=== PATIENT | male | born 1950 | race Caucasian/White ===

== ENCOUNTER 2017-05-05 16:18 | Inpatient (IN) | payer MEDICAID ==
[~2017-05-05] VITALS: Ht 175.3 cm; Wt 83.4 kg
[2017-05-05 17:44] LABS: BASOPHILS # (AUTO) 0.03 x10^3/uL (0-0.1); BASOPHILS % (AUTO) 0 % (0-1); EOSINOPHILS # (AUTO) 0.09 x10^3/uL (0-0.4); EOSINOPHILS % (AUTO) 1 % (1-7); LYMPHOCYTES # (AUTO) 2.23 x10^3/uL (1-3.4); LYMPHOCYTES % (AUTO) 23 % (22-44); MD NO; MEAN CORPUSCULAR HEMOGLOBIN 27.6 pg (27.5-34.5); MEAN CORPUSCULAR HGB CONC 32.2 g/dL (33.2-36.2); MEAN CORPUSCULAR VOLUME 85.6 fL (81-97); MEAN PLATELET VOLUME 7.7 fL (7.4-10.4); MONOCYTES # (AUTO) 1.23 x10^3/uL (0.2-0.8); MONOCYTES % (AUTO) 13 % (2-9); NEUTROPHILS % (AUTO) 63 % (42-75); PLATELET COUNT 265 x10^3/uL (130-400); RED BLOOD COUNT 5.55 x10^6/uL (4.38-5.82); RED CELL DISTRIBUTION WIDTH 13.9 % (9.4-14.8)
[2017-05-05 17:56] LABS: ALBUMIN 2.8 g/dL (3.4-5.0); ANION GAP 9 mmol/L (5-15); CALCIUM 8.6 mg/dL (8.5-10.1); CHLORIDE 109 mmol/L (98-107); CREATININE 0.75 mg/dL (0.7-1.3)
[2017-05-05] MEDS ORDERED: PLEASE ENTER ALLERGIES MC SCH (18:00)
[2017-05-05] MEDS ORDERED: SODIUM CHLORIDE FLUSH 10ML SYR IVF ONE (18:00)
[2017-05-05] MEDS ORDERED: GADOBUTROL 7.5 MMOL/7.5 ML PFS ONE (18:23)
[2017-05-05] MEDS ORDERED: VENL37.57 PO (19:00)
[2017-05-05] MEDS ORDERED: AMLO10TA2 PO (19:00)
[2017-05-05] MEDS ORDERED: MELO7.5T31 PO (19:00)
[2017-05-05 19:45] LABS: AMPHETAMINE SCREEN, URINE Negative (Negative); BARBITURATE SCREEN, URINE Negative (Negative); BENZODIAZEPINE SCREEN, URINE Negative (Negative); CANNABINOID SCREEN, URINE Positive (Negative); COCAINE SCREEN, URINE Negative (Negative); METHADONE SCREEN, URINE Negative (Negative); OPIATE SCREEN, URINE Negative (Negative)
[2017-05-05] MEDS ORDERED: CEFTRIAXONE PMX 2GM/50ML 50 ML ONE (21:21)
[2017-05-05] MEDS ORDERED: POTASSIUM CHLORIDE 20 MEQ TAB.ER.PRT PO ONE (21:30)
[2017-05-05] MEDS ORDERED: ONDANSETRON 2MG/ML, 2ML IVPush PRN (21:30)
[2017-05-05] MEDS ORDERED: POLYETHYLENE GLYCOL 17 GM PACKET PO PRN (21:30)
[2017-05-05] MEDS ORDERED: ACETAMINOPHEN 325 MG TABLET PO PRN (21:30)
[2017-05-05] MEDS ORDERED: VANCOMYCIN PER PHARMACY MC PRN (21:30)
[2017-05-05] MEDS ORDERED: CEFTRIAXONE PMX 2GM/50ML 50 ML IV SCH (21:30)
[2017-05-05] MEDS ORDERED: BISACODYL 10 MG SUPP PR PRN (21:30)
[2017-05-05 21:36] LABS: HCT (SEDRATE) 45.9 % (39.2-51.8)
[2017-05-05] MEDS: SODIUM CHLORIDE FLUSH 10ML SYR IVF SCH (22:09)
[2017-05-05] MEDS ORDERED: POTASSIUM CHLORIDE 20 MEQ TAB.ER.PRT ONE (22:42)
[2017-05-05] MEDS: NICOTINE 7 MG/24 HR PATCH.TD24 TD SCH (22:46)
[2017-05-06] MEDS: VANCOMYCIN 1,600 MG in SODIUM CHLORIDE 0.9% 250 ML IV SCH ×2 (00:10→12:13)
[2017-05-06] MEDS: morphine SULFATE 10 MG/ML, 1ML IVPush PRN ×3 (00:10→09:45)
[2017-05-06 01:36] VITALS: BP 172/101
[2017-05-06 02:28] VITALS: BP 151/86
[2017-05-06 06:15] LABS: BASOPHILS # (AUTO) 0.03 x10^3/uL (0-0.1); BASOPHILS % (AUTO) 0 % (0-1); EOSINOPHILS # (AUTO) 0.19 x10^3/uL (0-0.4); EOSINOPHILS % (AUTO) 3 % (1-7); LYMPHOCYTES # (AUTO) 0.97 x10^3/uL (1-3.4); LYMPHOCYTES % (AUTO) 14 % (22-44); MD NO; MEAN CORPUSCULAR HEMOGLOBIN 28.8 pg (27.5-34.5); MEAN CORPUSCULAR HGB CONC 33.6 g/dL (33.2-36.2); MEAN CORPUSCULAR VOLUME 85.7 fL (81-97); MEAN PLATELET VOLUME 8.1 fL (7.4-10.4); MONOCYTES # (AUTO) 0.85 x10^3/uL (0.2-0.8); MONOCYTES % (AUTO) 12 % (2-9); NEUTROPHILS # (AUTO) 5.16 x10^3/uL (1.8-6.8); NEUTROPHILS % (AUTO) 72 % (42-75); PLATELET COUNT 227 x10^3/uL (130-400); RED BLOOD COUNT 5.21 x10^6/uL (4.38-5.82); RED CELL DISTRIBUTION WIDTH 13.9 % (9.4-14.8)
[2017-05-06 06:20] LABS: CHLORIDE 110 mmol/L (98-107)
[2017-05-06 06:44] LABS: ALANINE AMINOTRANSFERASE 40 U/L (12-78); ALBUMIN 2.5 g/dL (3.4-5.0); ALKALINE PHOSPHATASE 121 U/L (45-117); ANION GAP 10 mmol/L (5-15); BILIRUBIN,TOTAL 0.5 mg/dL (0.2-1.0); CALCIUM 8.6 mg/dL (8.5-10.1); CREATININE 0.83 mg/dL (0.7-1.3); TOTAL PROTEIN 7.6 g/dL (6.4-8.2)
[2017-05-06 06:59] VITALS: BP 155/92
[2017-05-06] MEDS: SODIUM CHLORIDE FLUSH 10ML SYR IVF SCH ×2 (08:43→22:22)
[2017-05-06] MEDS: VENLAFAXINE 37.5MG TABLET PO SCH (08:43)
[2017-05-06] MEDS: SENNA/DOCUSATE TABLET PO SCH (08:43)
[2017-05-06] MEDS: MELOXICAM 15 MG TABLET PO SCH (08:43)
[2017-05-06] MEDS: AMLODIPINE 5 MG TABLET PO SCH (08:43)
[2017-05-06] MEDS: CEFTRIAXONE 2 GM in SODIUM CHLORIDE 0.9% 50 ML IVPB SCH ×2 (09:45→22:22)
[2017-05-06 14:00] VITALS: BP 135/77
[2017-05-06] MEDS: NICOTINE 7 MG/24 HR PATCH.TD24 TD SCH (22:22)
[2017-05-07] MEDS: VANCOMYCIN 1,600 MG in SODIUM CHLORIDE 0.9% 250 ML IV SCH ×2 (00:27→12:56)
[2017-05-07 00:40] VITALS: BP 167/68
[2017-05-07 06:51] VITALS: BP 163/91
[2017-05-07] MEDS: SODIUM CHLORIDE FLUSH 10ML SYR IVF SCH ×2 (08:12→22:12)
[2017-05-07] MEDS: AMLODIPINE 5 MG TABLET PO SCH (08:12)
[2017-05-07] MEDS: VENLAFAXINE 37.5MG TABLET PO SCH (08:13)
[2017-05-07] MEDS: SENNA/DOCUSATE TABLET PO SCH (08:13)
[2017-05-07] MEDS: MELOXICAM 15 MG TABLET PO SCH (08:13)
[2017-05-07] MEDS: CEFTRIAXONE 2 GM in SODIUM CHLORIDE 0.9% 50 ML IVPB SCH ×2 (09:30→22:13)
[2017-05-07] MEDS: morphine SULFATE 10 MG/ML, 1ML IVPush PRN ×2 (09:47→13:03)
[2017-05-07] MEDS: LISINOPRIL 10 MG TABLET PO SCH (10:11)
[2017-05-07 12:08] VITALS: BP 129/73
[2017-05-07 18:32] VITALS: BP 117/72
[2017-05-07] MEDS: NICOTINE 7 MG/24 HR PATCH.TD24 TD SCH (22:13)
[2017-05-08 00:09] VITALS: BP 139/80
[2017-05-08] MEDS: VANCOMYCIN 1,600 MG in SODIUM CHLORIDE 0.9% 250 ML IV SCH ×2 (00:22→12:21)
[2017-05-08 05:17] LABS: BASOPHILS # (AUTO) 0.02 x10^3/uL (0-0.1); BASOPHILS % (AUTO) 0 % (0-1); EOSINOPHILS # (AUTO) 0.28 x10^3/uL (0-0.4); EOSINOPHILS % (AUTO) 5 % (1-7); LYMPHOCYTES # (AUTO) 1.47 x10^3/uL (1-3.4); LYMPHOCYTES % (AUTO) 24 % (22-44); MD NO; MEAN CORPUSCULAR HEMOGLOBIN 28.7 pg (27.5-34.5); MEAN CORPUSCULAR HGB CONC 33.8 g/dL (33.2-36.2); MEAN CORPUSCULAR VOLUME 85.1 fL (81-97); MEAN PLATELET VOLUME 7.9 fL (7.4-10.4); MONOCYTES # (AUTO) 0.72 x10^3/uL (0.2-0.8); MONOCYTES % (AUTO) 12 % (2-9); NEUTROPHILS # (AUTO) 3.65 x10^3/uL (1.8-6.8); NEUTROPHILS % (AUTO) 59 % (42-75); PLATELET COUNT 214 x10^3/uL (130-400); RED BLOOD COUNT 5.09 x10^6/uL (4.38-5.82); RED CELL DISTRIBUTION WIDTH 13.8 % (9.4-14.8)
[2017-05-08 05:29] LABS: CHLORIDE 110 mmol/L (98-107)
[2017-05-08 05:35] LABS: ANION GAP 10 mmol/L (5-15); CALCIUM 8.2 mg/dL (8.5-10.1); CREATININE 0.74 mg/dL (0.7-1.3)
[2017-05-08] MEDS: morphine SULFATE 10 MG/ML, 1ML IVPush PRN ×2 (05:44→10:38)
[2017-05-08 07:14] VITALS: BP 122/79
[2017-05-08] MEDS: VENLAFAXINE 37.5MG TABLET PO SCH (08:04)
[2017-05-08] MEDS: LISINOPRIL 10 MG TABLET PO SCH (08:04)
[2017-05-08] MEDS: AMLODIPINE 5 MG TABLET PO SCH (08:04)
[2017-05-08] MEDS: SENNA/DOCUSATE TABLET PO SCH (08:04)
[2017-05-08] MEDS: MELOXICAM 15 MG TABLET PO SCH (08:05)
[2017-05-08] MEDS: SODIUM CHLORIDE FLUSH 10ML SYR IVF SCH ×2 (08:22→22:22)
[2017-05-08] MEDS: CEFTRIAXONE 2 GM in SODIUM CHLORIDE 0.9% 50 ML IVPB SCH ×2 (10:32→22:22)
[2017-05-08] MEDS ORDERED: MORPHINE SULFATE 4 MG/ML, 1ML ONE (10:37)
[2017-05-08 13:22] VITALS: BP 115/70
[2017-05-08 21:08] VITALS: BP 114/72
[2017-05-08] MEDS: NICOTINE 7 MG/24 HR PATCH.TD24 TD SCH (22:21)
[2017-05-08] MEDS: DIPHENHYDRAMINE 25 MG CAPSULE PO PRN (23:36)
[2017-05-09] MEDS: VANCOMYCIN 1,600 MG in SODIUM CHLORIDE 0.9% 250 ML IV SCH ×3 (00:28→19:09)
[2017-05-09 00:47] VITALS: BP 124/76
[2017-05-09] MEDS: morphine SULFATE 10 MG/ML, 1ML IVPush PRN ×4 (05:55→19:17)
[2017-05-09 06:55] VITALS: BP 127/80
[2017-05-09] MEDS: SODIUM CHLORIDE FLUSH 10ML SYR IVF SCH ×2 (09:00→21:23)
[2017-05-09] MEDS: SENNA/DOCUSATE TABLET PO SCH (09:00)
[2017-05-09] MEDS: CEFTRIAXONE 2 GM in SODIUM CHLORIDE 0.9% 50 ML IVPB SCH ×2 (10:03→21:35)
[2017-05-09] MEDS: AMLODIPINE 5 MG TABLET PO SCH (10:03)
[2017-05-09] MEDS: VENLAFAXINE 37.5MG TABLET PO SCH (10:04)
[2017-05-09] MEDS: MELOXICAM 15 MG TABLET PO SCH (10:04)
[2017-05-09] MEDS: LISINOPRIL 10 MG TABLET PO SCH (10:04)
[2017-05-09 13:20] VITALS: BP 117/69
[2017-05-09] MEDS: DIPHENHYDRAMINE 25 MG CAPSULE PO PRN (19:09)
[2017-05-09 19:25] VITALS: BP 112/64
[2017-05-09] MEDS: NICOTINE 7 MG/24 HR PATCH.TD24 TD SCH (21:24)
[2017-05-10 01:30] VITALS: BP 119/64
[2017-05-10] MEDS: morphine SULFATE 10 MG/ML, 1ML IVPush PRN ×5 (02:06→22:33)
[2017-05-10 06:39] LABS: HCT (SEDRATE) 41.5 % (39.2-51.8); MEAN CORPUSCULAR HEMOGLOBIN 28.2 pg (27.5-34.5); MEAN CORPUSCULAR HGB CONC 33.2 g/dL (33.2-36.2); MEAN CORPUSCULAR VOLUME 85.1 fL (81-97); MEAN PLATELET VOLUME 7.9 fL (7.4-10.4); PLATELET COUNT 217 x10^3/uL (130-400); RED BLOOD COUNT 4.87 x10^6/uL (4.38-5.82); RED CELL DISTRIBUTION WIDTH 13.7 % (9.4-14.8)
[2017-05-10 06:47] LABS: ALANINE AMINOTRANSFERASE 38 U/L (12-78); ALBUMIN 2.2 g/dL (3.4-5.0); ANION GAP 7 mmol/L (5-15); C-REACTIVE PROTEIN, QUANT 0.46 mg/dL (0.02-0.49); CALCIUM 7.9 mg/dL (8.5-10.1); CHLORIDE 108 mmol/L (98-107); CREATININE 0.71 mg/dL (0.7-1.3)
[2017-05-10 06:50] LABS: ALKALINE PHOSPHATASE 131 U/L (45-117); BILIRUBIN,TOTAL 0.2 mg/dL (0.2-1.0); TOTAL PROTEIN 7.1 g/dL (6.4-8.2); VANCOMYCIN,TROUGH 30.3 mcg/mL (5.0-10.0)
[2017-05-10 07:21] VITALS: BP 121/73
[2017-05-10 07:24] LABS: MD YES
[2017-05-10 07:26] LABS: BAND#(MANUAL) 0.05 x10^3/uL; BANDS%(MANUAL) 1 % (0-7); BASOS#(MANUAL) 0.05 x10^3/uL (0-0.1); BASOS% (MANUAL) 1 % (0-1); EOS#(MANUAL) 0.27 x10^3/uL (0.0-0.4); EOS% (MANUAL) 5 % (1-7); LYMPH#(MANUAL) 1.48 x10^3/uL (1-3.4); LYMPHS% (MANUAL) 28 % (22-44); MONOS#(MANUAL) 0.42 x10^3/uL (0.3-2.7); MONOS% (MANUAL) 8 % (2-9); REACTIVE LYMPHS # (MANUAL) 0.11 x10^3/uL (0-0); REACTIVE LYMPHS % (MANUAL) 2 % (0-0); SEG#(MANUAL) 2.92 x10^3/uL (1.8-6.8); SEGS% (MANUAL) 55 % (42-75)
[2017-05-10 07:27] LABS: <RBC MORPHOLOGY> NORMAL
[2017-05-10 07:28] LABS: <PLATELET ESTIMATE> ADEQUATE; <PLT MORPHOLOGY> NORMAL PLT MORPH
[2017-05-10] MEDS: SODIUM CHLORIDE FLUSH 10ML SYR IVF SCH ×2 (08:52→20:25)
[2017-05-10] MEDS: SENNA/DOCUSATE TABLET PO SCH (08:52)
[2017-05-10] MEDS: LISINOPRIL 10 MG TABLET PO SCH (08:53)
[2017-05-10] MEDS: AMLODIPINE 5 MG TABLET PO SCH (08:53)
[2017-05-10] MEDS: VENLAFAXINE 37.5MG TABLET PO SCH (08:53)
[2017-05-10] MEDS: MELOXICAM 15 MG TABLET PO SCH (08:54)
[2017-05-10] MEDS: DIPHENHYDRAMINE 25 MG CAPSULE PO PRN ×2 (09:01→20:26)
[2017-05-10] MEDS: CEFTRIAXONE 2 GM in SODIUM CHLORIDE 0.9% 50 ML IVPB SCH ×2 (09:28→22:29)
[2017-05-10 12:54] VITALS: BP 107/67
[2017-05-10 19:50] LABS: AMPHETAMINE SCREEN, URINE Negative (Negative); BARBITURATE SCREEN, URINE Negative (Negative); BENZODIAZEPINE SCREEN, URINE Negative (Negative); CANNABINOID SCREEN, URINE Positive (Negative); COCAINE SCREEN, URINE Negative (Negative); METHADONE SCREEN, URINE Negative (Negative); OPIATE SCREEN, URINE Positive (Negative)
[2017-05-10 20:12] VITALS: BP 117/69
[2017-05-10] MEDS: VANCOMYCIN 1,800 MG in SODIUM CHLORIDE 0.9% 250 ML IV SCH (20:25)
[2017-05-10] MEDS: NICOTINE 7 MG/24 HR PATCH.TD24 TD SCH (20:25)
[2017-05-11 02:21] VITALS: BP 110/68
[2017-05-11] MEDS: morphine SULFATE 10 MG/ML, 1ML IVPush PRN ×5 (02:38→22:21)
[2017-05-11 07:33] VITALS: BP 108/69
[2017-05-11] MEDS: MELOXICAM 15 MG TABLET PO SCH (09:00)
[2017-05-11] MEDS: SENNA/DOCUSATE TABLET PO SCH (09:00)
[2017-05-11] MEDS: VENLAFAXINE 37.5MG TABLET PO SCH (09:31)
[2017-05-11] MEDS: AMLODIPINE 5 MG TABLET PO SCH (09:32)
[2017-05-11] MEDS: LISINOPRIL 10 MG TABLET PO SCH (09:32)
[2017-05-11] MEDS: SODIUM CHLORIDE FLUSH 10ML SYR IVF SCH ×2 (09:32→20:58)
[2017-05-11] MEDS: CEFTRIAXONE 2 GM in SODIUM CHLORIDE 0.9% 50 ML IVPB SCH ×2 (09:33→23:03)
[2017-05-11 14:44] VITALS: BP 104/69
[2017-05-11] MEDS ORDERED: MIDAZOLAM 1 MG/ML, 2ML ONE ×2 (14:46→14:47)
[2017-05-11] MEDS ORDERED: FENTANYL PF 100 MCG/2ML ONE ×2 (14:46)
[2017-05-11] MEDS ORDERED: FLUMAZENIL 0.1 MG/1 ML, 5ML ONE (14:47)
[2017-05-11] MEDS ORDERED: NALOXONE 1 MG/ML, 2ML ONE (14:47)
[2017-05-11] MEDS ORDERED: LIDOCAINE 1%, 20ML ONE (15:18)
[2017-05-11 16:45] VITALS: BP 101/68
[2017-05-11 20:48] VITALS: BP 113/68
[2017-05-11] MEDS: DIPHENHYDRAMINE 25 MG CAPSULE PO PRN (20:58)
[2017-05-11] MEDS: VANCOMYCIN 1,800 MG in SODIUM CHLORIDE 0.9% 250 ML IV SCH (20:58)
[2017-05-11] MEDS: NICOTINE 7 MG/24 HR PATCH.TD24 TD SCH (22:20)
[2017-05-12 00:59] VITALS: BP 120/81
[2017-05-12] MEDS: morphine SULFATE 10 MG/ML, 1ML IVPush PRN ×4 (02:28→20:09)
[2017-05-12] MEDS: AMLODIPINE 5 MG TABLET PO SCH (08:14)
[2017-05-12] MEDS: VENLAFAXINE 37.5MG TABLET PO SCH (08:14)
[2017-05-12] MEDS: LISINOPRIL 10 MG TABLET PO SCH (08:15)
[2017-05-12] MEDS: MELOXICAM 15 MG TABLET PO SCH (08:15)
[2017-05-12] MEDS: SENNA/DOCUSATE TABLET PO SCH (08:15)
[2017-05-12 09:00] VITALS: BP 115/71
[2017-05-12] MEDS: SODIUM CHLORIDE FLUSH 10ML SYR IVF SCH ×2 (09:00→20:09)
[2017-05-12] MEDS: DIPHENHYDRAMINE 25 MG CAPSULE PO PRN ×2 (11:06→22:22)
[2017-05-12] MEDS: CEFTRIAXONE 2 GM in SODIUM CHLORIDE 0.9% 50 ML IVPB SCH ×2 (11:06→22:22)
[2017-05-12 14:52] VITALS: BP 114/72
[2017-05-12 19:00] VITALS: BP 106/62
[2017-05-12] MEDS: VANCOMYCIN 1,750 MG in SODIUM CHLORIDE 0.9% 250 ML IV SCH (19:52)
[2017-05-12] MEDS: NICOTINE 7 MG/24 HR PATCH.TD24 TD SCH (22:22)
[2017-05-13] MEDS: morphine SULFATE 10 MG/ML, 1ML IVPush PRN ×5 (02:40→21:49)
[2017-05-13 03:05] VITALS: BP 113/64
[2017-05-13 07:59] VITALS: BP 130/75
[2017-05-13] MEDS: MELOXICAM 15 MG TABLET PO SCH (10:05)
[2017-05-13] MEDS: VENLAFAXINE 37.5MG TABLET PO SCH (10:05)
[2017-05-13] MEDS: SENNA/DOCUSATE TABLET PO SCH (10:06)
[2017-05-13] MEDS: LISINOPRIL 10 MG TABLET PO SCH (10:06)
[2017-05-13] MEDS: AMLODIPINE 5 MG TABLET PO SCH (10:07)
[2017-05-13] MEDS: SODIUM CHLORIDE FLUSH 10ML SYR IVF SCH ×2 (10:09→20:47)
[2017-05-13] MEDS: CEFTRIAXONE 2 GM in SODIUM CHLORIDE 0.9% 50 ML IVPB SCH ×2 (10:32→22:49)
[2017-05-13 13:15] VITALS: BP 122/71
[2017-05-13] MEDS: DIPHENHYDRAMINE 25 MG CAPSULE PO PRN ×2 (13:19→23:06)
[2017-05-13] MEDS: VANCOMYCIN 1,750 MG in SODIUM CHLORIDE 0.9% 250 ML IV SCH (19:22)
[2017-05-13 20:39] VITALS: BP 107/58
[2017-05-13] MEDS: NICOTINE 7 MG/24 HR PATCH.TD24 TD SCH (20:47)
[2017-05-14 01:48] VITALS: BP 112/70
[2017-05-14] MEDS: morphine SULFATE 10 MG/ML, 1ML IVPush PRN ×3 (02:02→09:49)
[2017-05-14] MEDS: SODIUM CHLORIDE FLUSH 10ML SYR IVF SCH ×2 (09:42→19:37)
[2017-05-14] MEDS: SENNA/DOCUSATE TABLET PO SCH (09:43)
[2017-05-14] MEDS: AMLODIPINE 5 MG TABLET PO SCH (09:43)
[2017-05-14] MEDS: LISINOPRIL 10 MG TABLET PO SCH (09:44)
[2017-05-14] MEDS: VENLAFAXINE 37.5MG TABLET PO SCH (09:44)
[2017-05-14] MEDS: MELOXICAM 15 MG TABLET PO SCH (09:44)
[2017-05-14] MEDS: CEFTRIAXONE 2 GM in SODIUM CHLORIDE 0.9% 50 ML IVPB SCH ×2 (11:35→23:31)
[2017-05-14 12:12] VITALS: BP 121/82
[2017-05-14] MEDS: HYDROcodone/APAP 5/325 TABLET PO PRN ×2 (13:53→18:22)
[2017-05-14 15:20] VITALS: BP 108/65
[2017-05-14] MEDS: VANCOMYCIN 1,750 MG in SODIUM CHLORIDE 0.9% 250 ML IV SCH (19:37)
[2017-05-14 20:55] VITALS: BP 111/67
[2017-05-14] MEDS: NICOTINE 7 MG/24 HR PATCH.TD24 TD SCH (21:40)
[2017-05-15 04:08] VITALS: BP 143/86
[2017-05-15] MEDS: HYDROcodone/APAP 5/325 TABLET PO PRN ×3 (05:58→21:43)
[2017-05-15 07:41] VITALS: BP 122/70
[2017-05-15] MEDS: AMLODIPINE 5 MG TABLET PO SCH (08:42)
[2017-05-15] MEDS: SODIUM CHLORIDE FLUSH 10ML SYR IVF SCH ×2 (08:42→20:04)
[2017-05-15] MEDS: MELOXICAM 15 MG TABLET PO SCH (08:42)
[2017-05-15] MEDS: LISINOPRIL 10 MG TABLET PO SCH (08:42)
[2017-05-15] MEDS: VENLAFAXINE 37.5MG TABLET PO SCH (08:42)
[2017-05-15] MEDS: SENNA/DOCUSATE TABLET PO SCH (08:48)
[2017-05-15] MEDS: CEFTRIAXONE 2 GM in SODIUM CHLORIDE 0.9% 50 ML IVPB SCH ×2 (11:21→23:28)
[2017-05-15 13:43] VITALS: BP 120/71
[2017-05-15 19:32] VITALS: BP 118/64
[2017-05-15] MEDS: VANCOMYCIN 1,750 MG in SODIUM CHLORIDE 0.9% 250 ML IV SCH (20:03)
[2017-05-15] MEDS: DIPHENHYDRAMINE 25 MG CAPSULE PO PRN (20:03)
[2017-05-15] MEDS: METHOCARBAMOL 750 MG TABLET PO PRN (20:03)
[2017-05-15] MEDS: NICOTINE 7 MG/24 HR PATCH.TD24 TD SCH (21:41)
[2017-05-16 01:35] VITALS: BP 128/68
[2017-05-16] MEDS: HYDROcodone/APAP 5/325 TABLET PO PRN ×2 (04:50→15:20)
[2017-05-16 07:42] VITALS: BP 148/85
[2017-05-16] MEDS: VENLAFAXINE 37.5MG TABLET PO SCH (09:49)
[2017-05-16] MEDS: AMLODIPINE 5 MG TABLET PO SCH (09:49)
[2017-05-16] MEDS: SENNA/DOCUSATE TABLET PO SCH (09:49)
[2017-05-16] MEDS: SODIUM CHLORIDE FLUSH 10ML SYR IVF SCH ×2 (09:49→21:00)
[2017-05-16] MEDS: MELOXICAM 15 MG TABLET PO SCH (09:49)
[2017-05-16] MEDS: LISINOPRIL 10 MG TABLET PO SCH (09:50)
[2017-05-16] MEDS: CEFTRIAXONE 2 GM in SODIUM CHLORIDE 0.9% 50 ML IVPB SCH ×2 (11:15→22:38)
[2017-05-16] MEDS: DIPHENHYDRAMINE 25 MG CAPSULE PO PRN ×2 (11:32→19:38)
[2017-05-16 14:38] VITALS: BP 123/74
[2017-05-16] MEDS: VANCOMYCIN 1,750 MG in SODIUM CHLORIDE 0.9% 250 ML IV SCH (18:46)
[2017-05-16] MEDS: NICOTINE 7 MG/24 HR PATCH.TD24 TD SCH (19:39)
[2017-05-16 20:12] VITALS: BP 126/75
[2017-05-17 01:20] VITALS: BP 129/89
[2017-05-17 04:50] LABS: BASOPHILS # (AUTO) 0.03 x10^3/uL (0-0.1); BASOPHILS % (AUTO) 0 % (0-1); EOSINOPHILS # (AUTO) 0.24 x10^3/uL (0-0.4); EOSINOPHILS % (AUTO) 4 % (1-7); LYMPHOCYTES # (AUTO) 1.78 x10^3/uL (1-3.4); LYMPHOCYTES % (AUTO) 27 % (22-44); MD NO; MEAN CORPUSCULAR HEMOGLOBIN 28.4 pg (27.5-34.5); MEAN CORPUSCULAR HGB CONC 33.7 g/dL (33.2-36.2); MEAN CORPUSCULAR VOLUME 84.2 fL (81-97); MEAN PLATELET VOLUME 8.8 fL (7.4-10.4); MONOCYTES # (AUTO) 0.82 x10^3/uL (0.2-0.8); MONOCYTES % (AUTO) 12 % (2-9); NEUTROPHILS # (AUTO) 3.75 x10^3/uL (1.8-6.8); NEUTROPHILS % (AUTO) 57 % (42-75); PLATELET COUNT 187 x10^3/uL (130-400); RED BLOOD COUNT 5.11 x10^6/uL (4.38-5.82); RED CELL DISTRIBUTION WIDTH 13.7 % (9.4-14.8)
[2017-05-17 04:56] LABS: HCT (SEDRATE) 43.2 % (39.2-51.8)
[2017-05-17 05:05] LABS: ALANINE AMINOTRANSFERASE 62 U/L (12-78); ALBUMIN 2.5 g/dL (3.4-5.0); ANION GAP 6 mmol/L (5-15); C-REACTIVE PROTEIN, QUANT 0.26 mg/dL (0.02-0.49); CALCIUM 8.2 mg/dL (8.5-10.1); CHLORIDE 108 mmol/L (98-107); CREATININE 0.69 mg/dL (0.7-1.3)
[2017-05-17 05:07] LABS: ALKALINE PHOSPHATASE 185 U/L (45-117); BILIRUBIN,TOTAL 0.3 mg/dL (0.2-1.0); VANCOMYCIN,TROUGH 22.4 mcg/mL (5.0-10.0)
[2017-05-17] MEDS: DIPHENHYDRAMINE 25 MG CAPSULE PO PRN ×3 (05:09→21:01)
[2017-05-17 07:27] VITALS: BP 126/76
[2017-05-17] MEDS: MELOXICAM 15 MG TABLET PO SCH (09:11)
[2017-05-17] MEDS: VENLAFAXINE 37.5MG TABLET PO SCH (09:11)
[2017-05-17] MEDS: LISINOPRIL 10 MG TABLET PO SCH (09:12)
[2017-05-17] MEDS: AMLODIPINE 5 MG TABLET PO SCH (09:12)
[2017-05-17] MEDS: SODIUM CHLORIDE FLUSH 10ML SYR IVF SCH ×2 (09:12→21:02)
[2017-05-17] MEDS: SENNA/DOCUSATE TABLET PO SCH (09:12)
[2017-05-17] MEDS ORDERED: LINE600T37 PO (10:54)
[2017-05-17] MEDS ORDERED: CEFD300C37 PO (10:54)
[2017-05-17] MEDS: CEFTRIAXONE 2 GM in SODIUM CHLORIDE 0.9% 50 ML IVPB SCH ×2 (11:25→23:44)
[2017-05-17 15:15] VITALS: BP 129/76
[2017-05-17] MEDS: HYDROcodone/APAP 5/325 TABLET PO PRN ×2 (16:03→21:01)
[2017-05-17] MEDS ORDERED: VANCOMYCIN 1,400 MG in SODIUM CHLORIDE 0.9% 250 ML IV SCH (19:00)
[2017-05-17 20:24] VITALS: BP 140/79
[2017-05-17] MEDS: METHOCARBAMOL 750 MG TABLET PO PRN (21:01)
[2017-05-17] MEDS: NICOTINE 7 MG/24 HR PATCH.TD24 TD SCH (23:44)
[2017-05-18 02:19] VITALS: BP 129/83
[2017-05-18 06:50] VITALS: BP 138/88
[2017-05-18] MEDS: SENNA/DOCUSATE TABLET PO SCH (09:00)
[2017-05-18] MEDS: LISINOPRIL 10 MG TABLET PO SCH (10:37)
[2017-05-18] MEDS: VENLAFAXINE 37.5MG TABLET PO SCH (10:38)
[2017-05-18] MEDS: AMLODIPINE 5 MG TABLET PO SCH (10:38)
[2017-05-18] MEDS: MELOXICAM 15 MG TABLET PO SCH (10:41)
[2017-05-18] MEDS: SODIUM CHLORIDE FLUSH 10ML SYR IVF SCH (10:44)
[2017-05-18] MEDS: CEFTRIAXONE 2 GM in SODIUM CHLORIDE 0.9% 50 ML IVPB SCH (11:39)
[2017-05-18] MEDS: DIPHENHYDRAMINE 25 MG CAPSULE PO PRN (11:39)
[2017-05-18 12:12] VITALS: BP 138/90
[2017-05-18] MEDS: HYDROcodone/APAP 5/325 TABLET PO PRN (12:27)
== END 2017-05-18 16:56 | disposition home or self-care (01) | DRG 871 ==
LOC: ED 21:50 → EDIP 21:55 → 4WST 23:21 → 4NOR 05-14 16:41
PROVIDERS: ADMIT Hospitalist; ATTEND Hospitalist
PROC: 009U3ZX Drainage of Spinal Canal, Percutaneous Approach, Diagnostic (ICD-10-PCS; principal; 2017-05-11)
DX: A41.9 Sepsis, unspecified organism (principal); G06.1 Intraspinal abscess and granuloma; E44.0 Moderate protein-calorie malnutrition; M46.26 Osteomyelitis of vertebra, lumbar region; B15.9 Hepatitis A without hepatic coma; L02.212 Cutaneous abscess of back [any part, except buttock and flank]; I11.9 Hypertensive heart disease without heart failure; I10 Essential (primary) hypertension; F11.10 Opioid abuse, uncomplicated; F12.90 Cannabis use, unspecified, uncomplicated; F17.210 Nicotine dependence, cigarettes, uncomplicated; G89.29 Other chronic pain; B19.20 Unspecified viral hepatitis C without hepatic coma; K80.20 Calculus of gallbladder without cholecystitis without obstruction; M43.16 Spondylolisthesis, lumbar region; M46.46 Discitis, unspecified, lumbar region; M48.061 Spinal stenosis, lumbar region without neurogenic claudication; R32 Unspecified urinary incontinence; Z68.27 Body mass index [BMI] 27.0-27.9, adult
CPT/HCPCS: 20225; 36415; 72158; 75989; 76705; 80048; 80053; 80074; 80202; 80307; 80356; 82040; 82172; 82247; 82977; 83010; 83883; 84460; 85025; 85651; 86140; 86141; 86480; 86635; 86698; 86703; 86708; 87040; 87070; 87075; 87102; 87116; 87205; 87206; 87521; 87899; 88108; 93306; 96365; 99156; 99157; A9585; J0696; J2250; J3010; J3370; J3490; G0435; G0480; J2270; J2310; J7050; Q0163